=== PATIENT | female | born 1940 | race Caucasian/White ===

== ENCOUNTER 2018-05-24 10:52 | Inpatient (IN) ==
[2018-05-24 16:33] LABS: Baso # (Auto) 0.1 th/mm3 (0.0-0.2); Baso % (Auto) 0.9 % (0.0-2.0); Eos # (Auto) 0.1 th/mm3 (0.0-0.4); Eos % (Auto) 1.3 % (0.0-4.0); Hematocrit 40.6 % (35.0-46.0); Hemoglobin 13.7 gm/dL (11.6-15.3); Lymph # (Auto) 2.2 th/mm3 (1.0-4.8); Lymph % (Auto) 27.1 % (9.0-44.0); Mean Corpuscular HGB Conc 33.7 % (32.0-36.0); Mean Corpuscular Hemoglobin 34.7 pg (27.0-34.0); Mean Corpuscular Volume 102.8 fL (80.0-100.0); Mean Platelet Volume 8.5 fL (7.0-11.0); Mono # (Auto) 0.8 th/mm3 (0.0-0.9); Mono % (Auto) 9.2 % (0.0-8.0); Neut # (Auto) 5.1 th/mm3 (1.8-7.7); Neut % (Auto) 61.5 % (16.0-70.0); Platelet Count 171 th/mm3 (150-450); Red Blood Count 3.95 mil/mm3 (4.00-5.30); Red Cell Distribution Width 14.9 % (11.6-17.2); White Blood Count 8.3 th/mm3 (4.0-11.0)
[2018-05-24 16:35] LABS: Bilirubin,Urine Negative (Negative); Clarity,Urine Hazy (Clear); Color,Urine Yellow (Yellw/Straw); Glucose,Urine (UA) Negative (Negative); Leukocyte Esterase,Urine Negative (Negative); Mucus,Urine Few /lpf (Occasional); Nitrite,Urine Negative (Negative); Specific Gravity,Urine 1.026 (1.002-1.035); Squamous Epithelial Cell,Urine <1 /hpf (0-5)
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
[2018-05-24 16:54] LABS: Amphetamine Screen,Urine Neg (Neg); Barbiturate Screen,Urine Neg (Neg); Cannabinoid Screen,Urine Neg (Neg); Cocaine Screen,Urine Neg (Neg); Opiate Screen,Urine Neg (Neg)
--- NOTE | 2018-05-24 16:56 | XR ---
EXAM DATE: 05/24/2018 4:53 PM EST AGE/SEX: 77 years / Female INDICATIONS: Cough. CLINICAL DATA: This is the patient's initial encounter. Patient reports that signs and symptoms have been present for 1 day and indicates a pain score of Nonresponsive. MEDICAL/SURGICAL HISTORY: Non-responsive. Non-responsive. COMPARISON: No prior exams available for comparison. FINDINGS: Mild interstitial prominence without focal pleural or parenchymal opacities. The cardiomediastinal co ntours are unremarkable. Osseous structures are intact. CONCLUSION: 1. Senescent changes without acute abnormality. Electronically signed by: Mateo Clinton MD 05/24/2018 4:55 PM EST
[2018-05-24 17:06] LABS: Alanine Aminotransferase 23 U/L (10-53); Anion Gap 5 meq/L (5-15); Aspartate Aminotransferase 26 U/L (15-37); Blood Urea Nitrogen 28 mg/dL (7-18); Calcium 8.4 mg/dL (8.5-10.1); Carbon Dioxide 28.1 meq/L (21.0-32.0); Chloride 107 meq/L (98-107); Glomerular Filtration Rate 68 mL/min (>89); Glucose,Random 101 mg/dL (74-106); Potassium 4.9 meq/L (3.5-5.1); Sodium 140 meq/L (136-145); Total Protein 7.7 g/dL (6.4-8.2)
[2018-05-24 17:07] LABS: Albumin 3.7 g/dL (3.4-5.0); Alkaline Phosphatase 102 U/L (45-117)
--- NOTE | 2018-05-24 17:07 | CT ---
EXAM DATE: 05/24/2018 4:56 PM EST AGE/SEX: 77 years / Female INDICATIONS: Altered mental status. CLINICAL DATA: This is the patient's initial encounter. Patient reports that signs and symptoms have been present for 1 day and indicates a pain score of 0/10. MEDICAL/SURGICAL HISTORY: Dementia. Parkinson's disease. None. RADIATION DOSE: 36.37 CTDI (mGy) COMPARISON: No prior exams available for comparison. TECHNIQUE: CT of the head without contrast. Using automated exposure control and adjustment of the mA and/or kV according to patient size, radiation dose was kept as low as reasonably achievable to ob tain optimal diagnostic quality images. DICOM format image data is available electronically for revi ew and comparison. FINDINGS: Cerebrum: The ventricles are normal for age. No evidence of midline shift, mass lesion, hemorrhage or acute infarction. No extraaxial fluid collections are seen. Posterior Fossa: The cerebellum and brainstem are intact. The 4th ventricle is midline. Hyperdense mass in the left cerebellopontine angle measuring 3.5 x 1.7 cm. Extracranial: The visualized portion of the orbits is intact. Skull: The calvaria is intact. No evidence of skull fracture. CONCLUSION: 1. Hyperdense mass in the left costophrenic angle measuring 3.5 x 1.7 cm possibly meningioma versus schwannoma. Hemorrhage felt to be less likely. 2. Contrasted MRI recommended for further characterization. . Electronically signed by: Myles Shepherd MD 05/24/2018 5:06 PM EST
[2018-05-24] MEDS ORDERED: Metoprolol Inj 5 MG/5 ML Vial IV.PUSH ONE (18:58)
[2018-05-24] MEDS ORDERED: Gadobutrol PF 10 MMOL/10 ML Vial (for RAD) IV.SIG ONE (20:20)
--- NOTE | 2018-05-24 20:32 | MR ---
EXAM DATE: 05/24/2018 8:20 PM EST AGE/SEX: 77 years / Female INDICATIONS: Altered mental status. Metastatic disease. CLINICAL DATA: This is the patient's subsequent encounter. Patient reports that signs and symptoms h ave been present for 1 day and indicates a pain score of 0/10. MEDICAL/SURGICAL HISTORY: Carcinoma, breast. Diabetes. Hypertension. Pituitary adenoma. Ton sillectomy. Total knee replacement, left. Total knee replacement, right. Left breast lumpectomy. COMPARISON: [facility] [place], CT HEAD W/O CONTRAST, 05/24/2018. . TECHNIQUE: Multiplanar, multisequence examination of the brain was performed without and with 9 ml Ga davist (gadobutrol) contrast as a single exam dose. FINDINGS: A mass is seen in the left posterior fossa measuring 2.6 x 3.4 x 2.5 cm in size. The mass is partiall y calcified by CT done today. On this MRI it has heterogeneous enhancement. There is a broad base aga inst the dura and the left tentorium is mildly thickened relative to the right, for example series 16 image 132. The lesion is well posterior to the internal auditory canal and the left vestibulocochlea r nerve. There is mass effect on the cerebellum and approximately 4 mm of rightward cerebellar shift. The mass abuts the left transverse sinus but does not clearly invade it. No supratentorial masses are present. No perceptible lesion of the sella or pituitary. Optic chiasm i s normal. No intracranial hemorrhage or hematoma. No cerebral midline shift. There is no restricted diffusion. CONCLUSION: 1. Large, dural based left posterior fossa mass as described and with features most typical of a men ingioma. I don't have any remote priors and comparison is recommended. If this mass has developed edward ckly over the last year or so, a dural based metastatic lesion should be considered in the differenti al. The lesion causes 4 mm of rightward cerebellum shift. 2. No supratentorial mass. No cerebral mass effect or midline shift. Electronically signed by: Alexandr Valdez MD 05/24/2018 8:31 PM EST
[2018-05-25] MEDS ORDERED: Bisacodyl 10 MG Supp RECTAL PRN (00:41)
[2018-05-25] MEDS ORDERED: Acetaminophen 325 MG Tablet PO PRN (00:41)
[2018-05-25] MEDS ORDERED: Dextrose 50% in Water 50 ML Vial IV.PUSH PRN (00:41)
[2018-05-25] MEDS ORDERED: Sod Chloride 0.9% Inj 1,000 ML IV.CONT SCH (00:45)
[2018-05-25] MEDS ORDERED: Aspirin 325 MG Tablet PO PRN (00:57)
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
[2018-05-25] MEDS: Insulin NovoLOG Aspart Correctional Sugar Inj SQ SCH ×4 (08:27→20:20)
[2018-05-25] MEDS: Gabapentin 100 MG Capsule PO SCH ×3 (08:33→17:37)
[2018-05-25] MEDS: Metoprolol Tartrate 50 MG Tablet PO SCH ×2 (08:34→20:20)
[2018-05-25] MEDS: Senna/Docusate Sodium 8.6/50 MG Tablet PO SCH ×2 (08:34→20:20)
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
[2018-05-25] MEDS: ROTIGOTINE 1 MG/24 HR TOPICAL SCH (10:07)
--- NOTE | 2018-05-25 11:16 | P.PNIM ---
Subjective Interval history: Reports that she has no headaches, visual changes, nor any difficulty with her swallow or speech. She states that she has been unsteady on her feet has been at bedside more so during the past 10 days.. Her states that she has not had any hallucinations since admission overnight. He does not feel that she is confused today. She is asking when she can eat. She has chronic lymph edema bilateral lower legs and wears a chronic bilateral KAITY hose stocking. Physical Exam Vital signs: Last Vital Signs Temp 97.4 F L 05/25/18 08:00 Pulse 85 05/25/18 08:00 Resp 18 05/25/18 08:00 BP 176/77 H 05/25/18 08:00 Pulse Ox 96 05/25/18 08:00 Intake & Output 05/23/18 05/24/18 05/25/18 05/26/18 06:59 06:59 06:59 06:59 Weight 92.5 kg Constitutional no acute distress and obese Routine Respiratory Exam Present CTA bilaterally Routine Cardiovascular Exam Present RRR; Absent murmur Routine Abdominal Exam Present soft and normoactive bowel sounds; Absent tenderness and distended Routine Extremities Exam Present edema (2+ edema bilaterally); Absent cyanosis and clubbing Routine Neurological Exam Present alert, oriented X3, moving all extremities and normal speech; Absent motor deficit and altered mental status Results Labs CBC & Chem 7: 05/24/18 16:00 05/24/18 16:00 Imaging Imaging: Impressions Chest X-Ray 05/24/18 16:24 CONCLUSION: 1. Senescent changes without acute abnormality. Head CT 05/24/18 16:24 CONCLUSION: 1. Hyperdense mass in the left costophrenic angle measuring 3.5 x 1.7 cm possibly meningioma versus schwannoma. Hemorrhage felt to be less likely. 2. Contrasted MRI recommended for further characterization. . Head MRI 05/24/18 17:12 CONCLUSION: 1. Large, dural based left posterior fossa mass as described and with features most typical of a meningioma. I don't have any remote priors and comparison is recommended. If this mass has developed quickly over the last year or so, a dural based metastatic lesion should be considered in the differential. The lesion causes 4 mm of rightward cerebellum shift. 2. No supratentorial mass. No cerebral mass effect or midline shift. Assessment and Plan (1) Meningioma: Code(s): D32.9 - Benign neoplasm of meninges, unspecified Status: Acute Plan 69-year-old white female presented emergency room with increased falls due to unsteady gait, hallucinations, increased confusion with altered mental status found to have Brain mass with features most typical of a meningioma causing a 4 mm right or cerebellar shift -await neurosurgery consultation evaluation. Continue with neurochecks every 4. Continue with physical therapy occupational therapy. Previous history of hallucinations, delirium-this has resolved overnight per . Patient is status post neurology evaluation, Dr. Park. She had recent changes in her medication for her Parkinsons and switch over to Neupro patch from ropinirole. Psychiatry evaluation pending. History of Parkinson's disease with Lewy body featurescontinue with home Sinemet and Neupro patch, continue physical therapy. Hypertension, chronic essential, uncontrolledcontinue with metoprolol, add lisinopril Diabetes mellitus, type II, [id number], with neuropathy on gabapentin , - metformin and glyburide held due to n.p.o. status overnight, will restart metformin, continue with blood sugar monitoring with sliding scale insulin. Bilateral lower extremity chronic edema -KAITY hose and elevate follow-up as an outpatient. Progress Note: Quality VTE Deep Vein Thrombosis/Pulmonary Embolism Present on Admission: No
--- NOTE | 2018-05-25 12:12 | MG ---
cc: James Donohue MD, PhD TEST NUMBER: [id number] TECHNIQUE: A 17-channel EEG. DESCRIPTION: The background rhythm reveals a normal alpha rhythm, frequency 8 Hz during drowsiness. There is slowing in the theta range. No lateralizing features are identified and no epileptiform features are seen. Photic stimulation was done in a stepwise fashion with a fairly well-developed driving response. INTERPRETATION: Normal electroencephalogram. James Donohue MD, PhD SCOT/ , 12:02 PM , 12:06 PM
[2018-05-25] MEDS: Lisinopril 10 MG Tablet PO SCH (12:28)
[2018-05-25 13:52] LABS: C-Reactive Protein 0.33 mg/dL (0.00-0.30)
[2018-05-25 14:17] LABS: Vitamin B12 454 pg/mL (193-986)
--- NOTE | 2018-05-25 15:20 | P.CONPSY ---
Provisional Diagnosis Admission Date: May 24, 2018 22:46 Merritt I.: Unspecified psychosis, r/o major neurocognitive disorder secondary to Parkinson' s disease, R/O Lewy body dementia, R/O medication induced psychosis History of Present Illness Service: Medicne Primary Care Provider: UNKNOWN History of Present Illness: The patient is a 77-year-old woman, domiciled with her in [place], mother of 2 sons, she is a former nurse, with a psychiatric history of dementia, unspecified psychosis, but no previous psychiatric hospitalizations, no previous suicide attempts, she was recently started in Seroquel and Ativan, but discontinued due to concerns of falling and oversedation, with a past medical history significant for Parkinson's disease, restless leg syndrome, hypertension, diabetes mellitus, hyperlipidemia, ROXANNE, GERD, COPD and a history of breast cancer presents to the emergency department for the evaluation of increased falling and increased hallucinations with behavioral disturbances. The patient's sister and provide must of the history. As per the sister and , the patient has had increased falls over the past several weeks. She also has been having hallucinations where she believes a lady in a black hat is watching her and that a porn star is living in her house and having group sex with her and son. She has been having hallucinations for about a year now, but in the last 2 weeks hallucination has increased in intensity, severity and also in frequency. In the last days she has been seeing her having sex with multiple woman indication, she also has been making accusations of her sons stealing her money. She also has been verbalizing that she wants to kill herself and need her to kill her if he continued having sex in front of her. She also has called the police several times for auditory hallucinations that occur at night. She has become increasingly confused, agitated and hitting aggressive. On my evaluation the patient is calm, cooperative, very pleasant. She is insightful enough to tell me that she has been having visual hallucinations and making accusations that does not make any sense to her family. She says that she has not have any hallucination today. She reports to be in a good mood, she denies suicidal and homicidal ideation. The patient is willing to explore potential treatment and a solution for this hallucination including to be admitted all entirely in psychiatry. She is fully oriented x3, no attention deficit, no fluctuation of consciousness present per She has a Brain mass with features most typical of a meningioma causing a 4 mm right or cerebellar shift -await neurosurgery consultation evaluation. Continue with neurochecks every 4. Continue with physical therapy occupational therapy. She also was seen by neurology , Dr. Park. She had recent changes in her medication for her Parkinsons and switch over to Neupro patch from ropinirole for the treatment of restless leg syndrome and Parkinson's. History of Parkinson's disease with Lewy body featurescontinue with home Sinemet and Neupro patch, continue physical therapy. 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, but no psychiatric admissions, no pre-suicide attempts, she has been having these hallucinations for a year, she was in Seroquel and Ativan, but discontinue due to oversedation PMHx: Diabetes mellitus GERD (gastroesophageal reflux disease) History of breast cancer History of pituitary adenoma Hyperlipidemia Hypertension ROXANNE (obstructive sleep apnea) Parkinson disease Restless leg syndrome Substance history: Denies the use of alcohol and illegal drug Family Hx: Father had dementia Social Hx: She was born and raised in [place], she lives in [facility] her , she has 2 sons, she is a former nurse. Review of Systems All other systems reviewed negative except as stated in HPI Psychiatric: Reports paranoia, Reports seeing things others do not see, Reports sensing things others do not sense, Reports tactile hallucinations PMFSH - History History Provided By: Family Member - Medical History Medical History: Medical History (Last Reviewed 05/25/18 @ 13:59 by Cameron Sullivan) Dementia Dementia Diabetes mellitus GERD (gastroesophageal reflux disease) History of breast cancer History of pituitary adenoma Hyperlipidemia Hypertension ROXANNE (obstructive sleep apnea) Parkinson disease Restless leg syndrome - Surgical History Surgical History: Surgical History (Last Reviewed 05/25/18 @ 13:59 by Cameron Sullivan) History of lumpectomy History of toe surgery History of tonsillectomy - Family History Family History: Family History (Last Reviewed 05/25/18 @ 06:40 by Myra Valdez) Other CAD (coronary artery disease) Cancer Diabetes mellitus - Tobacco History Second Hand Smoke Exposure: No Tobacco Use In Past 30 Days: No Smoking Status: Never smoker - Alcohol History How Often Do You Have a Drink Containing Alcohol: Never - Substance Use History Substance History: No History of Abuse - Travel History Recent Travel in the [place] Within the Last 8 Weeks: No Recent Travel Out of the Country Within the Last 8 Weeks: No - Immunization History Tetanus Immunization: >5 Years Hx Influenza Vaccine This Season: Yes Medications and Allergies Active Medications: Active Medications Acetaminophen (Tylenol) 650 mg PO Q6H PRN PRN Reason: headache/fever/pain1-4 Al Hydroxide/Mg Hydroxide (Milk Of Magnesia Liq) 30 ml PO Q12H PRN PRN Reason: Mild Constipation Aspirin (Aspirin) 650 mg PO Q4H PRN PRN Reason: Mild pain/Temp elevation Bisacodyl (Dulcolax Supp) 10 mg RECTAL DAILY PRN PRN Reason: SEVERE CONSITIPATION Carbidopa/Levodopa (Sinemet 25/100 Mg) 1.5 tab PO TID [facility] Last Admin: 05/25/18 12:27 Dose: 1.5 tab Dextrose (D50w Vial) 50 ml IV.PUSH UNSCH PRN PRN Reason: PER HYPOGLYCEMIA PROTOCOL Enalaprilat (Vasotec Inj) 1.25 mg IV.PUSH Q6H PRN PRN Reason: SEE LABEL COMMENTS Gabapentin (Neurontin) 200 mg PO TID [facility] Last Admin: 05/25/18 12:27 Dose: 200 mg Glucagon (Glucagon Inj) 1 mg OTHER PRN PRN PRN Reason: for Hypoglycemia Protocol Insulin Aspart (Novolog Insulin Correctional Sugar Inj) 0 unit SQ [facility]; Protocol Last Admin: 05/25/18 11:56 Dose: Not Given Lactulose (Lactulose Liq) 30 ml PO DAILY PRN PRN Reason: SEVERE CONSITIPATION Lisinopril (Prinivil) 10 mg PO DAILY [facility] Last Admin: 05/25/18 12:28 Dose: 10 mg Metformin HCl (Glucophage) 500 mg PO BID [facility] Last Admin: 05/25/18 12:27 Dose: 500 mg Metoprolol Tartrate (Lopressor) 50 mg PO BID [facility] Last Admin: 05/25/18 08:34 Dose: 50 mg Ondansetron HCl (Zofran Inj) 4 mg IV.PUSH Q6H PRN PRN Reason: NAUSEA OR VOMITING Pt Own Neupro (Transdermal) 0 each TOPICAL DAILY [facility] Last Admin: 05/25/18 10:07 Dose: 1 each Senna/Docusate Sodium (Christy-Colace) 1 tab PO BID [facility] Last Admin: 12/05/18 08:34 Dose: Not Given Sennosides (Senokot) 17.2 mg PO Q12H PRN PRN Reason: Moderate Constipation Sodium Chloride (Ns Flush) 2 ml IV.FLUSH BID [facility] Last Admin: 05/25/18 08:34 Dose: Not Given Sodium Chloride (Ns Flush) 2 ml IV.FLUSH PRN PRN PRN Reason: FLUSH AFTER USING IV ACCESS Tolterodine Tartrate (Detrol La) 4 mg PO [facility] Allergies Allergy/AdvReac Type Severity Reaction Status Date / Time No Known Allergies Allergy Verified 05/24/18 11:02 Home Medications Medication Instructions Recorded Confirmed Type acetaminophen [Tylenol 8 Hour] 1,300 mg PO Q8H PRN 05/24/18 05/24/18 History aspirin 650 mg PO Q4-6H PRN 05/24/18 05/24/18 History carbidopa-levodopa [Sinemet] 1.5 tab PO TID 05/24/18 05/24/18 History cetirizine 10 mg PO DAILY 05/24/18 05/24/18 History darifenacin [Enablex] 15 mg PO HS 05/24/18 05/24/18 History gabapentin 200 mg PO TID 05/24/18 05/24/18 History glyburide 2.5 mg PO DAILY 05/24/18 05/24/18 History meloxicam [Mobic] 15 mg PO DAILY 05/24/18 05/24/18 History metformin 500 mg PO BID 05/24/18 05/24/18 History metoprolol tartrate 50 mg PO BID 05/24/18 05/24/18 History tapbrfbl-orv-RG-lycopen-lutein 1 tab PO DAILY 05/24/18 05/24/18 History [Centrum Silver] vit C,T-Qm-skmau-lutein-zeaxan 1 tab PO BID 05/24/18 05/24/18 History [PreserVision AREDS-2] rotigotine [Neupro] 1 mg TRANSDERMAL DAILY 05/25/18 05/25/18 History Exam Vital signs: Vital Signs 05/24/18 18:50 05/24/18 21:05 05/25/18 00:47 Temperature 98.0 F Pulse Rate 72 80 77 Respiratory Rate 18 16 21 Blood Pressure 206/104 H 130/59 L 171/77 H Pulse Oximetry 97 97 96 05/25/18 04:00 05/25/18 04:24 05/25/18 08:00 Temperature 96.9 F L 97.4 F L Pulse Rate 78 82 85 Respiratory Rate 20 18 Blood Pressure 160/70 H 176/77 H Pulse Oximetry 96 96 05/25/18 12:00 05/25/18 12:44 Temperature 97.8 F 97.4 F L Pulse Rate 77 75 Respiratory Rate 17 17 Blood Pressure 166/77 H 178/84 H Pulse Oximetry 98 96 Intake & Output 05/24/18 05/25/18 05/25/18 18:59 06:59 18:59 Intake Total 1000 / 1000 Balance 1000 / 1000 Weight 88.451 kg 92.5 kg Intake: IV 1000 / 1000 NS Inj 1,000 ML @ 84 mls/hr IV. 1000 / 1000 CONT .[id number] [facility] Rx#:[id number] Other: # Voids 2 # Bowel Movements 1 Weight On Admission 92.2 kg Narrative: Marked bradykinesia, bilateral stiffness, flat affect, masked face Mental Status Examination Appearance: Appropriate Consciousness: Alert Orientation: x4 Motor Activity: Normal gait Speech: Unremarkable Language: Adequate Fund of Knowledge: Adequate Attention and Concentration: Adequate Memory: Unremarkable Mood: Appropriate Affect: Appropriate Thought Process & Associations: Intact Thought Content: Hallucinations Hallucination Type: Visual Delusion Type: Bizarre, Paranoid Suicidal Ideation: No Suicidal Plan: No Suicidal Intention: No Homicidal Ideation: No Homicidal Plan: No Homicidal Intention: No Insight: Poor Judgment: Poor Assessment and Plan - Assessment (1) Unspecified psychosis Code(s): F29 - Unspecified psychosis not due to a substance or known physiological condition Status: Acute - Plan Plan: On my psychiatric evaluation today I find a patient that is calm, cooperative and pleasant. She does have a prominent flat affect, masked faces, bradykinesia , stiffness, bilateral tremors with delayed speech and thought process which is most probably secondary to her Parkinson's disease. The patient reports having episodic visual hallucinations, described as very vivid, colorful in detailed people around her, usually mute, which at the time could be quite disturbing such as the vision of her having sex with multiple woman in front of her. She also has been experiencing paranoia has been making accusations toward her family with agitation and aggressive behavior as a consequence. Apparently this perceptual disturbances has been increasing in severity, intensity and also frequency in the last weeks to the point that this has been very stressful for the patient and her family. This is a patient with no previous psychiatric history other than dementia secondary to Parkinson's disease, no previous suicidal attempts, no prepsychotic hospitalizations. She was treated with Seroquel and Ativan by PCP, but these medications were rapidly discontinued due to oversedation and falls. In my opinion this perceptual disturbances are most probably related with her medical conditions. It is highly probable that this experiences are precipitated and exacerbated by dopaminergic medications for restless leg syndrome and Parkinson's disease. Today Neurology switched ropinirole to to Neupro patch which could have an immediate positive impact in the perceptual disturbances without adding an antipsychotic. I have offered a voluntary psychiatric admission to the patient to continue a close monitoring station and longitudinal observation of thought process and behavior and to explore the need and real benefit of adding an antipsychotic, the patient and family have agreed with this. I will follow-up Justification for Continued Inpatient Stay: To be admitted voluntarily in psychiatry.
[2018-05-25] MEDS: Tolterodine Tartrate LA 4 MG Capsule PO SCH (20:19)
[2018-05-26 07:12] LABS: Baso # (Auto) 0.1 th/mm3 (0.0-0.2); Eos # (Auto) 0.1 th/mm3 (0.0-0.4); Eos % (Auto) 1.7 % (0.0-4.0); Hematocrit 37.5 % (35.0-46.0); Hemoglobin 12.7 gm/dL (11.6-15.3); Lymph # (Auto) 1.7 th/mm3 (1.0-4.8); Lymph % (Auto) 30.3 % (9.0-44.0); Mean Corpuscular HGB Conc 33.9 % (32.0-36.0); Mean Corpuscular Volume 103.4 fL (80.0-100.0); Mono # (Auto) 0.5 th/mm3 (0.0-0.9); Mono % (Auto) 8.8 % (0.0-8.0); Neut # (Auto) 3.3 th/mm3 (1.8-7.7); Neut % (Auto) 58.2 % (16.0-70.0); Platelet Count 147 th/mm3 (150-450); Red Blood Count 3.63 mil/mm3 (4.00-5.30); Red Cell Distribution Width 14.5 % (11.6-17.2); White Blood Count 5.7 th/mm3 (4.0-11.0)
--- NOTE | 2018-05-26 07:30 | P.PNNEU ---
Subjective Active Medications: Active Medications Acetaminophen (Tylenol) 650 mg PO Q6H PRN PRN Reason: headache/fever/pain1-4 Al Hydroxide/Mg Hydroxide (Milk Of Magnesia Liq) 30 ml PO Q12H PRN PRN Reason: Mild Constipation Aspirin (Aspirin) 650 mg PO Q4H PRN PRN Reason: Mild pain/Temp elevation Bisacodyl (Dulcolax Supp) 10 mg RECTAL DAILY PRN PRN Reason: SEVERE CONSITIPATION Carbidopa/Levodopa (Sinemet 25/100 Mg) 1.5 tab PO TID [facility] Last Admin: 05/25/18 17:37 Dose: 1.5 tab Dextrose (D50w Vial) 50 ml IV.PUSH UNSCH PRN PRN Reason: PER HYPOGLYCEMIA PROTOCOL Enalaprilat (Vasotec Inj) 1.25 mg IV.PUSH Q6H PRN PRN Reason: SEE LABEL COMMENTS Gabapentin (Neurontin) 200 mg PO TID [facility] Last Admin: 05/25/18 17:37 Dose: 200 mg Glucagon (Glucagon Inj) 1 mg OTHER PRN PRN PRN Reason: for Hypoglycemia Protocol Insulin Aspart (Novolog Insulin Correctional Sugar Inj) 0 unit SQ [facility]; Protocol Last Admin: 05/25/18 20:20 Dose: Not Given Lactulose (Lactulose Liq) 30 ml PO DAILY PRN PRN Reason: SEVERE CONSITIPATION Lisinopril (Prinivil) 10 mg PO DAILY [facility] Last Admin: 05/25/18 12:28 Dose: 10 mg Metformin HCl (Glucophage) 500 mg PO BID [facility] Last Admin: 05/25/18 20:19 Dose: 500 mg Metoprolol Tartrate (Lopressor) 50 mg PO BID [facility] Last Admin: 05/25/18 20:20 Dose: 50 mg Ondansetron HCl (Zofran Inj) 4 mg IV.PUSH Q6H PRN PRN Reason: NAUSEA OR VOMITING Pt Own Neupro (Transdermal) 0 each TOPICAL DAILY [facility] Last Admin: 05/25/18 10:07 Dose: 1 each Senna/Docusate Sodium (Christy-Colace) 1 tab PO BID [facility] Last Admin: 05/25/18 20:20 Dose: 1 tab Sennosides (Senokot) 17.2 mg PO Q12H PRN PRN Reason: Moderate Constipation Sodium Chloride (Ns Flush) 2 ml IV.FLUSH BID [facility] Last Admin: 05/25/18 20:20 Dose: 2 ml Sodium Chloride (Ns Flush) 2 ml IV.FLUSH PRN PRN PRN Reason: FLUSH AFTER USING IV ACCESS Tolterodine Tartrate (Detrol La) 4 mg PO HS [facility] Last Admin: 05/25/18 20:19 Dose: 4 mg Allergies/Adverse Reactions: Allergies Allergy/AdvReac Type Severity Reaction Status Date / Time No Known Allergies Allergy Verified 05/24/18 11:02 Physical Exam Vital signs: Vital Signs 05/25/18 08:00 05/25/18 12:00 05/25/18 12:44 Temperature 97.4 F L 97.8 F 97.4 F L Pulse Rate 85 77 75 Respiratory Rate 18 17 17 Blood Pressure 176/77 H 166/77 H 178/84 H Pulse Oximetry 96 98 96 05/25/18 16:00 05/25/18 20:00 05/26/18 00:00 Temperature 97.6 F 97.8 F 98.4 F Pulse Rate 63 81 75 Respiratory Rate 18 22 20 Blood Pressure 90/49 L 148/67 H 149/67 H Pulse Oximetry 92 L 95 94 L 05/26/18 04:00 Temperature 98 F Pulse Rate 83 Respiratory Rate 20 Blood Pressure 172/87 H Pulse Oximetry 94 L Intake & Output 05/25/18 05/26/18 05/26/18 18:59 06:59 18:59 Intake Total 1800 / 1800 240 / 240 Balance 1800 / 1800 240 / 240 Weight 92.1 kg Intake: IV 1000 / 1000 NS Inj 1,000 ML @ 84 mls/hr IV. 1000 / 1000 CONT .[id number] [facility] Rx#:[id number] Oral 800 / 800 240 / 240 Other: # Voids 4 4 # Bowel Movements 1 Narrative: slow to awaken remebers bp standing yest Objective Laboratory Results - last 24 hr 05/25/18 05/25/18 05/25/18 07:43 11:49 13:10 WBC RBC Hgb Hct MCV MCH MCHC RDW Plt Count MPV Neut % (Auto) Lymph % (Auto) Carver % (Auto) Eos % (Auto) Baso % (Auto) Neut # (Auto) Lymph # (Auto) Carver # (Auto) Eos # (Auto) Baso # (Auto) WBC Differential Differential Comment ESR POC Glucose 129 H 127 H Ammonia 14 C-Reactive Protein Vitamin B12 Rheumatoid Factor Scrn Rheumatoid Factor Titer 05/25/18 05/25/18 05/25/18 13:10 16:44 18:43 WBC RBC Hgb Hct MCV MCH MCHC RDW Plt Count MPV Neut % (Auto) Lymph % (Auto) Carver % (Auto) Eos % (Auto) Baso % (Auto) Neut # (Auto) Lymph # (Auto) Carver # (Auto) Eos # (Auto) Baso # (Auto) WBC Differential Differential Comment ESR 42 H POC Glucose 112 H Ammonia C-Reactive Protein 0.33 H Vitamin B12 454 Rheumatoid Factor Scrn Negative Rheumatoid Factor Titer Not Reportable 05/25/18 05/26/18 20:18 05:42 WBC 5.7 RBC 3.63 L Hgb 12.7 Hct 37.5 MCV 103.4 H MCH 35.0 H MCHC 33.9 RDW 14.5 Plt Count 147 L MPV 9.0 Neut % (Auto) 58.2 Lymph % (Auto) 30.3 Carver % (Auto) 8.8 H Eos % (Auto) 1.7 Baso % (Auto) 1.0 Neut # (Auto) 3.3 Lymph # (Auto) 1.7 Carver # (Auto) 0.5 Eos # (Auto) 0.1 Baso # (Auto) 0.1 WBC Differential . Differential Comment Auto diff final ESR POC Glucose 179 H Ammonia C-Reactive Protein Vitamin B12 Rheumatoid Factor Scrn Rheumatoid Factor Titer Review/Management - Review/Management Plan: imp bp standing ok labs ok so far PD sinemet added watch for hallucinations oob ambulate with PT can get o/p gamma knife
[2018-05-26 07:38] LABS: Calcium 8.9 mg/dL (8.5-10.1); Carbon Dioxide 25.3 meq/L (21.0-32.0); Potassium 4.2 meq/L (3.5-5.1)
[2018-05-26] MEDS: Gabapentin 100 MG Capsule PO SCH ×3 (08:53→17:26)
[2018-05-26] MEDS: Metoprolol Tartrate 50 MG Tablet PO SCH ×2 (08:54→20:38)
[2018-05-26] MEDS: Lisinopril 10 MG Tablet PO SCH (08:54)
[2018-05-26] MEDS: Senna/Docusate Sodium 8.6/50 MG Tablet PO SCH ×2 (08:54→20:38)
[2018-05-26] MEDS: Insulin NovoLOG Aspart Correctional Sugar Inj SQ SCH ×4 (08:57→20:40)
[2018-05-26] MEDS: ROTIGOTINE 1 MG/24 HR TOPICAL SCH (11:54)
[2018-05-26] MEDS: Escitalopram 10 MG Tablet PO SCH (14:50)
--- NOTE | 2018-05-26 17:37 | P.PNIM ---
Subjective Interval history: Patient reports that she has not had any visual hallucinations. There is no headache. She is working with physical therapy. There is no nausea. No denies any visual changes. She is open to going to psychiatry for further evaluation. Physical Exam Vital signs: Last Vital Signs Temp 98.1 F 05/26/18 12:00 Pulse 82 05/26/18 12:00 Resp 18 05/26/18 12:00 BP 138/65 05/26/18 12:00 Pulse Ox 94 L 05/26/18 12:00 Intake & Output 05/24/18 05/25/18 05/26/18 05/27/18 06:59 06:59 06:59 06:59 Intake Total 2039 Balance 2039 Weight 92.5 kg 92.1 kg Narrative: Gen.: Well-nourished female sitting in bed, p Cardiovascular: Regular rate and rhythm. No murmurs, rubs or gallops. Respiratory: Lungs clear to auscultation bilaterally. No wheezes or rhonchi. Abdomen: Soft, nontender, nondistended. Normoactive bowel sounds Musculoskeletal: No gross deformities. No edema. Skin: No obvious rashes or erythema. Neuro: Sensory and motor grossly intact. Cranial nerves II through XII grossly intact. Resting tremor. Alert and oriented to person place and time. Results Labs CBC & Chem 7: 05/26/18 05:42 05/26/18 05:42 Assessment and Plan (1) Unspecified psychosis: Code(s): F29 - Unspecified psychosis not due to a substance or known physiological condition Status: Acute (2) Meningioma: Code(s): D32.9 - Benign neoplasm of meninges, unspecified Status: Chronic (3) Parkinson's disease dementia: Code(s): G20 - Parkinson's disease; F02.80 - Dementia in other diseases classified elsewhere without behavioral disturbance Status: Chronic Plan 69-year-old white female presented emergency room with increased falls due to unsteady gait, hallucinations, increased confusion with altered mental status found to have Brain mass with features most typical of a meningioma causing a 4 mm right or cerebellar shift -await neurosurgery consultation evaluation. Continue with neurochecks every 4 which is remained stable. Continue with physical therapy occupational therapy. Previous history of hallucinations, delirium-this has not recurred in the hospitalization. Patient is status post neurology evaluation, Dr. Park. She had recent changes in her medication for her Parkinsons and switch over to Neupro patch from ropinirole. Appreciate psychiatry evaluation who recommended voluntary psychiatric admission to continue close monitoring and longitudinal observation of patient's thought process and behavior to explore the need for adding antipsychotic to the regimen. Psychiatry feels likely these hallucinations are likely from her Parkinson's medications. History of Parkinson's disease with Lewy body featurescontinue with home Sinemet and Neupro patch, continue physical therapy. Hypertension, chronic essential, uncontrolledcontinue with metoprolol, increase lisinopril dose. Diabetes mellitus, type II, [id number]-[id number], with neuropathy on gabapentin , overall controlled-on metformin, will restart home glyburide, continue with blood sugar monitoring with sliding scale insulin. Bilateral lower extremity chronic edema -KAITY hose and elevate follow-up as an outpatient. Possible transfer to inpatient psychiatry in the morning versus senior living facility placement. Progress Note: Quality VTE Deep Vein Thrombosis/Pulmonary Embolism Present on Admission: No _ (1) Unspecified psychosis Qualifiers: Psychosis type: Schizoaffective disorder type: Schizophrenia type: (2) Parkinson's disease dementia Qualifiers: Dementia behavioral disturbance: with behavioral disturbance Qualified Code(s ): G20 - Parkinson's disease; F02.81 - Dementia in other diseases classified elsewhere with behavioral disturbance
[2018-05-26] MEDS: Tolterodine Tartrate LA 4 MG Capsule PO SCH (20:38)
[2018-05-27 01:07] VITALS: O2SAT 93
[2018-05-27] MEDS: Insulin NovoLOG Aspart Correctional Sugar Inj SQ SCH ×2 (07:42→11:57)
[2018-05-27] MEDS: Senna/Docusate Sodium 8.6/50 MG Tablet PO SCH (08:27)
[2018-05-27] MEDS: Escitalopram 10 MG Tablet PO SCH (08:28)
[2018-05-27] MEDS: Metoprolol Tartrate 50 MG Tablet PO SCH (08:29)
[2018-05-27] MEDS: Lisinopril 10 MG Tablet PO SCH (08:29)
[2018-05-27] MEDS: Gabapentin 100 MG Capsule PO SCH ×2 (08:29→13:32)
[2018-05-27] MEDS: ROTIGOTINE 1 MG/24 HR TOPICAL SCH (08:31)
[2018-05-27] MEDS ORDERED: glyBURIDE 2.5 MG Tablet PO SCH (09:00)
--- NOTE | 2018-05-27 09:02 | P.PNNEU ---
Subjective Active Medications: Active Medications Acetaminophen (Tylenol) 650 mg PO Q6H PRN PRN Reason: headache/fever/pain1-4 Al Hydroxide/Mg Hydroxide (Milk Of Magnesia Liq) 30 ml PO Q12H PRN PRN Reason: Mild Constipation Bisacodyl (Dulcolax Supp) 10 mg RECTAL DAILY PRN PRN Reason: SEVERE CONSITIPATION Carbidopa/Levodopa (Sinemet 25/100 Mg) 1.5 tab PO TID [facility] Last Admin: 05/27/18 08:28 Dose: 1.5 tab Dextrose (D50w Vial) 50 ml IV.PUSH UNSCH PRN PRN Reason: PER HYPOGLYCEMIA PROTOCOL Enalaprilat (Vasotec Inj) 1.25 mg IV.PUSH Q6H PRN PRN Reason: SEE LABEL COMMENTS Escitalopram Oxalate (Lexapro) 10 mg PO DAILY [facility] Last Admin: 05/27/18 08:28 Dose: 10 mg Gabapentin (Neurontin) 200 mg PO TID [facility] Last Admin: 05/27/18 08:29 Dose: 200 mg Glucagon (Glucagon Inj) 1 mg OTHER PRN PRN PRN Reason: for Hypoglycemia Protocol Glyburide (Diabeta) 2.5 mg PO DAILY [facility] Last Admin: 05/27/18 08:29 Dose: 2.5 mg Insulin Aspart (Novolog Insulin Correctional Sugar Inj) 0 unit SQ ACHS [facility]; Protocol Last Admin: 05/27/18 07:42 Dose: Not Given Lactulose (Lactulose Liq) 30 ml PO DAILY PRN PRN Reason: SEVERE CONSITIPATION Lisinopril (Prinivil) 10 mg PO DAILY [facility] Last Admin: 05/27/18 08:29 Dose: 10 mg Metformin HCl (Glucophage) 500 mg PO BID [facility] Last Admin: 05/27/18 08:27 Dose: 500 mg Metoprolol Tartrate (Lopressor) 50 mg PO BID [facility] Last Admin: 05/27/18 08:29 Dose: 50 mg Ondansetron HCl (Zofran Inj) 4 mg IV.PUSH Q6H PRN PRN Reason: NAUSEA OR VOMITING Patch Removal (Remove Old Patch) 1 each T-DERMAL DAILY [facility] Last Admin: 05/27/18 08:32 Dose: 1 each Pt Own Neupro Transdermal 1mg/24hrs 0 each TOPICAL DAILY [facility] Last Admin: 05/27/18 08:31 Dose: 1 each Senna/Docusate Sodium (Christy-Colace) 1 tab PO BID [facility] Last Admin: 05/27/18 08:27 Dose: 1 tab Sennosides (Senokot) 17.2 mg PO Q12H PRN PRN Reason: Moderate Constipation Sodium Chloride (Ns Flush) 2 ml IV.FLUSH BID [facility] Last Admin: 05/27/18 08:33 Dose: 2 ml Sodium Chloride (Ns Flush) 2 ml IV.FLUSH PRN PRN PRN Reason: FLUSH AFTER USING IV ACCESS Tolterodine Tartrate (Detrol La) 4 mg PO [facility] Last Admin: 05/26/18 20:38 Dose: 4 mg Allergies/Adverse Reactions: Allergies Allergy/AdvReac Type Severity Reaction Status Date / Time No Known Allergies Allergy Verified 05/24/18 11:02 Physical Exam Vital signs: Vital Signs 05/26/18 12:00 05/26/18 13:00 05/26/18 16:00 Temperature 98.1 F 97.5 F L Pulse Rate 82 79 79 Respiratory Rate 18 18 Blood Pressure 138/65 153/78 H Pulse Oximetry 94 L 95 05/26/18 17:00 05/26/18 20:00 05/26/18 21:00 Temperature 97.3 F L Pulse Rate 79 72 74 Respiratory Rate 15 Blood Pressure 127/57 L Pulse Oximetry 92 L 05/27/18 00:00 05/27/18 01:00 05/27/18 04:00 Temperature 98.2 F 98.5 F Pulse Rate 81 78 82 Respiratory Rate 17 16 Blood Pressure 169/73 H 165/71 H Pulse Oximetry 93 L 93 L 05/27/18 05:00 Temperature Pulse Rate 72 Respiratory Rate Blood Pressure Pulse Oximetry Intake & Output 05/26/18 05/27/18 05/27/18 18:59 06:59 18:59 Intake Total 240 / 240 Balance 240 / 240 Weight 93.4 kg Intake: Oral 240 / 240 Other: # Voids 2 3 Date of Last Bowel Movement 05/25/18 05/25/18 # Bowel Movements 1 Narrative: apr 2018 moving well resting tremor lue awake alert 5/5 Objective Laboratory Results - last 24 hr 05/25/18 05/26/18 05/26/18 13:10 12:52 17:29 POC Glucose 116 H 106 RPR Nonreactive 05/26/18 05/27/18 20:39 07:40 POC Glucose 127 H 137 H RPR Review/Management - Review/Management Plan: imp bp standing ok labs ok so far PD sinemet added watch for hallucinations oob ambulate with PT can get o/p gamma knife 05/27/18 pd going to [facility] rehab maybe a little halucination this am i dw could try nuplazid o/p with his o/p neurologist needs gamma knife caitie ok dc by me to rehab
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
[2018-05-27 11:08] VITALS: BP 139/63; RESP 20; TEMP 98
--- NOTE | 2018-05-27 11:08 | P.PNNS ---
Subjective Interval history: ambulating with nurse to bathroom. does not want brain surgery at this time Physical Exam Vital signs: Vital Signs 05/26/18 12:00 05/26/18 13:00 05/26/18 16:00 Temperature 98.1 F 97.5 F L Pulse Rate 82 79 79 Respiratory Rate 18 18 Blood Pressure 138/65 153/78 H Pulse Oximetry 94 L 95 05/26/18 17:00 05/26/18 20:00 05/26/18 21:00 Temperature 97.3 F L Pulse Rate 79 72 74 Respiratory Rate 15 Blood Pressure 127/57 L Pulse Oximetry 92 L 05/27/18 00:00 05/27/18 01:00 05/27/18 04:00 Temperature 98.2 F 98.5 F Pulse Rate 81 78 82 Respiratory Rate 17 16 Blood Pressure 169/73 H 165/71 H Pulse Oximetry 93 L 93 L 05/27/18 05:00 Temperature Pulse Rate 72 Respiratory Rate Blood Pressure Pulse Oximetry Intake & Output 05/26/18 05/27/18 05/27/18 18:59 06:59 18:59 Intake Total 240 / 240 Balance 240 / 240 Weight 93.4 kg Intake: Oral 240 / 240 Other: # Voids 2 3 Date of Last Bowel Movement 05/25/18 05/25/18 05/25/18 # Bowel Movements 1 Narrative: awake, alert ambulating with nurse to bathroom pupils equal Assessment and Plan - Plan 77 y/o female with left posterior fossa meningioma nonsurgical management pt clear for discharge she may follow up outpatient with Dr. Will 2-3 months
[2018-05-27 12:00] VITALS: PULSE 78
[2018-05-27 13:04] LABS: Methylmalonic Acid 0.12 nmol/mL (<=0.40)
[2018-05-27 17:09] LABS: Anti-Nuclear Antibody Screen Neg (Neg)
--- NOTE | 2018-05-27 19:06 | P.PNNS ---
Physical Exam Vital signs: Vital Signs 05/26/18 20:00 05/26/18 21:00 05/27/18 00:00 Temperature 97.3 F L 98.2 F Pulse Rate 72 74 81 Respiratory Rate 15 17 Blood Pressure 127/57 L 169/73 H Pulse Oximetry 92 L 93 L 05/27/18 01:00 05/27/18 04:00 05/27/18 05:00 Temperature 98.5 F Pulse Rate 78 82 72 Respiratory Rate 16 Blood Pressure 165/71 H Pulse Oximetry 93 L 05/27/18 08:00 05/27/18 09:00 Temperature 98 F Pulse Rate 82 78 Respiratory Rate 20 Blood Pressure 139/63 Pulse Oximetry 93 L Intake & Output 05/27/18 05/27/18 05/28/18 06:59 18:59 06:59 Intake Total 240 / 240 Balance 240 / 240 Weight 93.4 kg Intake: Oral 240 / 240 Other: # Voids 3 Date of Last Bowel Movement 05/25/18 05/25/18 Assessment and Plan - Plan 77 y/o female with left posterior fossa meningioma nonsurgical management pt clear for discharge she may follow up outpatient with Dr. Will 2-3 months
== END 2018-05-27 15:02 ==
LOC: NEPE 10:52 → NEDA 22:46 → N07 05-25 00:26
PROVIDERS: ADMIT Family Medicine; ATTEND Family Medicine
DX: R29.6 Repeated falls; G47.33 Obstructive sleep apnea (adult) (pediatric); Z83.3 Family history of diabetes mellitus; E78.00 Pure hypercholesterolemia, unspecified; Z80.9 Family history of malignant neoplasm, unspecified; I11.0 Hypertensive heart disease with heart failure; I50.9 Heart failure, unspecified; F02.81 Dementia in other diseases classified elsewhere, unspecified severity, with behavioral disturbance; Z79.84 Long term (current) use of oral hypoglycemic drugs; E11.9 Type 2 diabetes mellitus without complications; J44.9 Chronic obstructive pulmonary disease, unspecified; Z81.8 Family history of other mental and behavioral disorders; K21.9 Gastro-esophageal reflux disease without esophagitis; D35.2 Benign neoplasm of pituitary gland; Z85.3 Personal history of malignant neoplasm of breast; E78.5 Hyperlipidemia, unspecified; Z82.3 Family history of stroke; G20 Parkinson's disease; I89.0 Lymphedema, not elsewhere classified; G25.81 Restless legs syndrome; R41.82 Altered mental status, unspecified; D32.0 Benign neoplasm of cerebral meninges; Z82.49 Family history of ischemic heart disease and other diseases of the circulatory system